=== PATIENT | male | born 1970 | race Caucasian/White ===

== ENCOUNTER 2022-05-18 09:05 | Day surgery (SDC) | payer OTHER ==
[~2022-05-18] VITALS: Ht 190.5 cm; Wt 102.8 kg
[~2022-05-18 09:05] MED LIST: CIPR500 PO; Crutch1 EACH MISC; HYDACE5 PO; Lovastatin10 MG PO
[2022-05-18] MEDS ORDERED: ATOR20 (09:54)
== END 2022-05-18 11:31 | disposition home or self-care (01) ==
LOC: ORSCSDS 09:05
PROVIDERS: Surgery
PROC: 0DBL8ZZ Excision of Transverse Colon, Via Natural or Artificial Opening Endoscopic (ICD-10-PCS; principal; 2022-05-18 10:30)
DX: Z12.11 Encounter for screening for malignant neoplasm of colon (principal); D12.3 Benign neoplasm of transverse colon; E78.5 Hyperlipidemia, unspecified; G47.33 Obstructive sleep apnea (adult) (pediatric); Z79.899 Other long term (current) drug therapy
CPT/HCPCS: 88305; J2704; J7120